=== PATIENT | female | born 1980 | race Caucasian/White ===

== ENCOUNTER 2016-04-14 18:31 | Emergency (ER) | payer OTHER ==
--- NOTE | 2016-04-14 19:18 | DIAGNOSTIC IMAGING REPORT ---
PROCEDURE: XR LUMBAR SPINE 2 OR 3 VIEWS INDICATION: TRAUMA/INJURY TECHNIQUE: Three views. COMPARISON: None. FINDINGS: Osseous structures and disc spaces are normal. No evidence of an acute process or fracture. IMPRESSION: 1. Negative lumbar spine.
--- NOTE | 2016-04-14 19:29 | ED CLINICAL REPORT ---
Clinical Report - Physicians/Mid Levels [facility] [address] [place] [address] 04/14/2016 18:33 Patient: DARREL RAZA Time Seen: 19:09 Apr 14 2016. Arrived- By private vehicle. Historian- patient. HISTORY OF PRESENT ILLNESS Chief Complaint: FALL. Location of injuries- lower back. The injury occurred just prior to arrival. Fell. Occurred at home. The patient complains of moderate pain. No blow to the head, neck pain or loss of consciousness. (ell down 5 stairs this morning, sliding on them, no injury to the head or neck, posterior back pain.pain worsens with sitting. Patient has been laying in bed all day. No other injuries to her wrist. History of back problems.). REVIEW OF SYSTEMS No hearing loss, chest pain, nausea or abdominal pain. All systems otherwise negative, except as recorded above. SOCIAL HISTORY Never smoker. No alcohol use or drug use. ADDITIONAL NOTES The nursing notes have been reviewed. PHYSICAL EXAM Vital Signs: 04/14/2016 18:40 BP: 105/60. HR: 81. RR: 15. O2 saturation: 98%. Temp: 98.8 F. Pain level now: 9/10. Appearance: Alert. Patient in mild distress. No backboard or C-collar. Eyes: Pupils equal, round and reactive to light. EOM intact. No ocular injury. ENT: No hemotympanum. Neck: Painless ROM. Non-tender. No vertebral tenderness. CVS: Heart sounds normal. Pulses normal. Respiratory: Breath sounds normal. Chest nontender. No chest wall injury. Abdomen: No visible injury. Soft. Back: Vertebral point tenderness. Moderate vertebral tenderness in the right upper and left upper lumbar area. ROM normal. Skin: Skin intact. Extremities: Pelvis stable. Right hip. No tenderness or swelling. Left hip. No tenderness or swelling. Neuro: Oriented X 3. LABS, X-RAYS, AND EKG LS-Spine X-rays: (IMPRESSION: 1. Negative lumbar spine. Electronically Final signed by:Felxi Weiner MD 04/14/2016 7:14:41 PM). PROGRESS AND PROCEDURES Course of Care: Mechanical fall on stairs, with lumbar tenderness. No rash on abrasion, no protrusion, good spinal alignment. X-ray without any signs of acute fracture, good distal range of motion, no distal neurovascular compromise. Patient stable. No red flags. Denies IV drug abuse, nor further paresthesias. Stable to follow up outpatient. 04/14/2016 19:34 BP: 116/84. HR: 73. RR: 16. O2 saturation: 100%. Pain level now: 8/10. Patient is stable. Patient/family counseled. Disposition: Discharged. Condition: good. CLINICAL IMPRESSION Contusion. INSTRUCTIONS Apply ice. Prescription Medications: Hydrocodone/APAP 5mg / 325mg: take 1 orally every 6 hours as needed for pain. Dispense ten (10). No refill. Motrin 800 mg tablets: take 1 tablet orally every 8 hours for 5 days, as needed for pain. Dispense ten (10). No refill. Substitution is permissible. Follow-up: Follow up with your doctor in three days. (Electronically signed by Lissa Bryan P.A.-C 04/14/2016 19:42)
--- NOTE | 2016-04-14 19:29 | ED ORDER SUMMARY ---
..... Patient: DARREL RAZA OrderSheet [facility] VisitID: [id number] [address] [place] [address] 35y, F Registration Date/Time: 04/14/2016 ORDER SHEET Weight: 94.8 kg (stated) Allergies: Penicillin GENERAL ORDERS: Lumbar Spine 2 or 3V Urgent (18:42 04/14/2016 Julianne Bowman) (Ack 18:46 KADIEuller) ([facility] MEDICATION ORDERS: Hydrocodone-APAP PO 10/650 mg (NOW, HIGH ALERT MEDICATION) (19:27 04/14/2016 Julianne Bowman) (Ack 19:28 JQuivey R.N.) (19:37 JQuivey R.N.) IV FLUIDS: ORDER SHEET NOTES: [Electronically signed by Lissa Bryan P.A.-C (19:42 04/14/2016)] [Electronically signed by Min Mondragon R.N. (23:54 04/14/2016)] [Electronically locked/signed by Min Mondragon R.N. (23:54 04/14/2016)]
--- NOTE | 2016-04-14 19:29 | ED NURSING NOTES ---
Clinical Report - Nurses [facility] [address] [place] [address] 04/14/2016 18:33 Patient: DARREL RAZA TRIAGE Triage time 1841 PM. Acuity: LEVEL 4. Chief Complaint: FALL while walking, onto a concrete surface and landed on their back; tripped. Alert. No acute distress. SEPSIS SCREEN: Sepsis Screen. Negative (no infection suspected/documented). CHASE COMA SCORE: Chase Coma Scale: 15- eyes open spontaneously (4); best verbal response- oriented x 4 (5); best motor response- obeys commands (6). --18:49 Martina Magana R.N. 18:40 04/14/16. BP: 105/60 (regular adult cuff) taken on the right arm, via an automated monitor, while lying. HR: 81. RR: 15. O2 saturation: 98%. Temp: 98.8 F (oral). Pain level now: 11/29. --18:49 Martina Magana R.N. Weight: 94.8 kg stated. Height/Length: 62 inches. BMI: 38.3. --18:42 Martina Magana R.N. Medications None. --18:46 Martina Magana R.N. Allergies Penicillin. --18:46 Martina Magana R.N. History Arrived by private vehicle, and walking from home. Historian: patient. Accompanied by family. ( Pt this a.m was at home and her 1 yr old niece fell down the stairs, she chased her and slipped and fell, states falling backwards, hitting her tail bone with rail and her right shoulder. Here to get further evaluation due to pain). This occurred today (this am). Occurred at home. She has had neck pain, back pain and trouble walking. No loss of consciousness. No alteration in mental status or dizziness. 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 PAST MEDICAL HX: Tetanus status: up-to-date. Immunizations: up-to-date. Last normal menstrual period- Mar. SOCIAL HX: Heavy tobacco smoker (cigarette)- more than 2 packs per day. No alcohol use or drug use. No infectious disease exposure. SELF HARM ASSESSMENT: A self harm assessment was performed. The patient answered "no" to the question "Do you have thoughts of harming or killing yourself?" and "Have you recently had thoughts about harming or killing others?". FALL RISK ASSESSMENT: Fall risk assessment completed. No fall risk identified. NUTRITIONAL RISK ASSESSMENT: The nutritional risk assessment revealed no deficiencies. FUNCTIONAL ASSESSMENT: Functional assessment: no impairments noted. LEARNING NEEDS ASSESSMENT: The learning needs assessment revealed no barriers. --18:49 Martina Magana R.N. PROBLEMS: Tendonitis [Chronic]. --18:47 Martina Magana R.N. Back Pain. --18:47 Martina Magana R.N. ADDITIONAL SURGERIES: Appendectomy. Tonsillectomy. --18:47 Martina Magana R.N. Interventions ID band on patient. --18:49 Martina Magana R.N. PHYSICAL ASSESSMENT GENERAL / NEURO / PSYCH: Alert. Oriented X 4. Appears in no acute distress. No weakness. No numbness. RESPIRATORY: Chest nontender. Breath sounds within normal limits. CVS: Capillary refill less than 2 seconds. GI / : Abdomen soft and nontender. EXTREMITIES: Neuro-vascular status intact to the extremity. Right shoulder: tenderness. No deformity. No limitation in ROM. SKIN: Skin intact. Skin is warm. BACK: Back: tenderness located in the mid-sacral area and mid- lumbar area. Range of motion limited. --18:50 Martina Magana R.N. NURSING PROGRESS NOTES The initial plan of care for this patient has been created This plan of care was discussed with the patient. Patient gowned. Reassurance given and given. Two patient identifiers checked. Call light placed in reach. Side rails up x 1. Brakes of bed on. Brakes of chair on. --18:51 Martina Magana R.N. Patient walked to radiology. --18:52 Martina Magana R.N. 19:07. Care transferred and report received. --19:07 Min Mondragon R.N. 19:23. Warming measures: blanket applied. The patient is calm and resting quietly. GENERAL / NEURO / PSYCH: Alert. Oriented X 4. RESPIRATORY: No respiratory distress. --19:24 Min Mondragon R.N. 19:34. The patient is calm and resting quietly. GENERAL / NEURO / PSYCH: Alert. Oriented X 4. RESPIRATORY: No respiratory distress. EXTREMITIES: Neuro-vascular status intact to the extremity. --19:37 Min Mondragon R.N. 19:32 04/14/2016 Hydrocodone-APAP (Hydrocodone-Acetaminophen) PO 5/325 mg Tablets 2 tab given. Allergies verified, confirmed 5 rights and sedative warning given to the patient. --19:37 Min Mondragon R.N. DISPOSITION / DISCHARGE Departure time: 19:36. Condition at departure: stable. No learning barriers present. Discharge instructions provided and reviewed with the patient. Reviewed medication(s) side effects, precautions, dosing and course information. Prescription(s) given to the patient. Patient verbalized understanding. Written instructions provided in [place]. The patient was discharged home and accompanied by family. She left the Emergency Department ambulatory and via private vehicle. Family member driving. FALL RISK ASSESSMENT: Fall risk assessment completed. No fall risk identified. --19:36 Min Mondragon R.N. 19:34 04/14/16. BP: 116/84. HR: 73. RR: 16. O2 saturation: 100% on room air. Pain level now: 10/29. --19:36 Min Mondragon R.N. Locked/Released at 04/14/2016 23:54 by Min Mondragon R.N.
--- NOTE | 2016-04-14 19:29 | ED CLINICAL REPORT ---
Clinical Report - Physicians/Mid Levels [facility] [address] [place] [address] 04/14/2016 18:33 Patient: DARREL RAZA Time Seen: 19:09 Apr 14 2016. Arrived- By private vehicle. Historian- patient. HISTORY OF PRESENT ILLNESS Chief Complaint: FALL. Location of injuries- lower back. The injury occurred just prior to arrival. Fell. Occurred at home. The patient complains of moderate pain. No blow to the head, neck pain or loss of consciousness. (ell down 5 stairs this morning, sliding on them, no injury to the head or neck, posterior back pain.pain worsens with sitting. Patient has been laying in bed all day. No other injuries to her wrist. History of back problems.). REVIEW OF SYSTEMS No hearing loss, chest pain, nausea or abdominal pain. All systems otherwise negative, except as recorded above. SOCIAL HISTORY Never smoker. No alcohol use or drug use. ADDITIONAL NOTES The nursing notes have been reviewed. PHYSICAL EXAM Vital Signs: 04/14/2016 18:40 BP: 105/60. HR: 81. RR: 15. O2 saturation: 98%. Temp: 98.8 F. Pain level now: 9/10. Appearance: Alert. Patient in mild distress. No backboard or C-collar. Eyes: Pupils equal, round and reactive to light. EOM intact. No ocular injury. ENT: No hemotympanum. Neck: Painless ROM. Non-tender. No vertebral tenderness. CVS: Heart sounds normal. Pulses normal. Respiratory: Breath sounds normal. Chest nontender. No chest wall injury. Abdomen: No visible injury. Soft. Back: Vertebral point tenderness. Moderate vertebral tenderness in the right upper and left upper lumbar area. ROM normal. Skin: Skin intact. Extremities: Pelvis stable. Right hip. No tenderness or swelling. Left hip. No tenderness or swelling. Neuro: Oriented X 3. LABS, X-RAYS, AND EKG LS-Spine X-rays: (IMPRESSION: 1. Negative lumbar spine. Electronically Final signed by:Felix Weiner MD 04/14/2016 7:14:41 PM). PROGRESS AND PROCEDURES Course of Care: Mechanical fall on stairs, with lumbar tenderness. No rash on abrasion, no protrusion, good spinal alignment. X-ray without any signs of acute fracture, good distal range of motion, no distal neurovascular compromise. Patient stable. No red flags. Denies IV drug abuse, nor further paresthesias. Stable to follow up outpatient. 04/14/2016 19:34 BP: 116/84. HR: 73. RR: 16. O2 saturation: 100%. Pain level now: 8/10. Patient is stable. Patient/family counseled. Disposition: Discharged. Condition: good. CLINICAL IMPRESSION Contusion. INSTRUCTIONS Apply ice. Prescription Medications: Hydrocodone/APAP 5mg / 325mg: take 1 orally every 6 hours as needed for pain. Dispense ten (10). No refill. Motrin 800 mg tablets: take 1 tablet orally every 8 hours for 5 days, as needed for pain. Dispense ten (10). No refill. Substitution is permissible. Follow-up: Follow up with your doctor in three days. (Electronically signed by Lissa Bryan P.A.-C 04/14/2016 19:42)
--- NOTE | 2016-04-14 19:29 | ED ORDER SUMMARY ---
..... Patient: DARREL RAZA OrderSheet [facility] VisitID: [id number] [address] [place] [address] 35y, F Registration Date/Time: 04/14/2016 ORDER SHEET Weight: 94.8 kg (stated) Allergies: Penicillin GENERAL ORDERS: Lumbar Spine 2 or 3V Urgent (18:42 04/14/2016 Julianne Bowman) (Ack 18:46 KADIEuller) (19:[facility] MEDICATION ORDERS: Hydrocodone-APAP PO 10/650 mg (NOW, HIGH ALERT MEDICATION) (19:27 04/14/2016 Julianne Bowman) (Ack 19:28 JQuivey R.N.) (19:37 JQuivey R.N.) IV FLUIDS: ORDER SHEET NOTES: [Electronically signed by Lissa Bryan P.A.-C (19:42 04/14/2016)] [Electronically signed by Min Mondragon R.N. (23:54 04/14/2016)] [Electronically locked/signed by Min Mondragon R.N. (23:54 04/14/2016)]
--- NOTE | 2016-04-14 23:54 | ED MAR SUMMARY ---
..... Medication Administration Record [facility] [address] [place] [address] Patient: DARREL RAZA Visit ID: [id number] 35y, F Weight: 94.8 kg Height/Length: 62 in BMI: 38.3 ALLERGIES: Penicillin Given 19:32 04/14/2016 Min Mondragon R.N. Medication Administered: HYDROCODONE-APAP [PO] (HYDROCODONE-ACETAMINOPHEN), Dose: 2 tab 5/325 mg Tablets PO. Medication Ordered: Hydrocodone-APAP PO 10/650 mg (NOW, HIGH ALERT MEDICATION).
--- NOTE | 2016-04-14 23:54 | ED MED RECONCILIATION SUMMARY ---
Patient: DARREL RAZA Medication Reconciliation Report [facility] VisitID: [id number] [address] [place] [address] 35y, F Registration Date/Time: 04/14/2016 Weight: 94.8 kg Height/Length: 62 in. BMI: 38.3 ALLERGIES: Penicillin The patient's Home Medications are listed below: NONE. The source(s) of the original Home Medication information: Not obtained. The following Medications were given to the patient in the Emergency Department: Hydrocodone-APAP [PO] PO 2 tab, administered: 04/14/2016 7:32:00 PM The following Medications were prescribed to the patient: Hydrocodone/APAP 5mg / 325mg: take 1 orally every 6 hours as needed for pain. Dispense ten (10). No refill. -- Lissa Bryan, P.A.-C Motrin 800 mg tablets: take 1 tablet orally every 8 hours for 5 days, as needed for pain. Dispense ten (10). No refill. Substitution is permissible. -- Lissa Bryan, P.A.-C
--- NOTE | 2016-04-14 23:54 | ED MAR SUMMARY ---
..... Medication Administration Record [facility] [address] [place] [address] Patient: DARREL RAZA Visit ID: [id number] 35y, F Weight: 94.8 kg Height/Length: 62 in BMI: 38.3 ALLERGIES: Penicillin Given 19:32 04/14/2016 Min Mondragon R.N. Medication Administered: HYDROCODONE-APAP [PO] (HYDROCODONE-ACETAMINOPHEN), Dose: 2 tab 5/325 mg Tablets PO. Medication Ordered: Hydrocodone-APAP PO 10/650 mg (NOW, HIGH ALERT MEDICATION).
--- NOTE | 2016-04-14 23:54 | ED DISCHARGE INSTRUCTIONS ---
Patient: DARREL RAZA General Instructions [facility] VisitID: [id number] [place] [address] 35y, F Registration Date/Time: 04/14/2016 Contusion. INSTRUCTIONS Apply ice. Prescription Medications: Hydrocodone/APAP 5mg / 325mg: take 1 orally every 6 hours as needed for pain. Dispense ten (10). No refill. Motrin 800 mg tablets: take 1 tablet orally every 8 hours for 5 days, as needed for pain. Dispense ten (10). No refill. Substitution is permissible. Follow-up: Follow up with your doctor in three days. ADDITIONAL INFORMATION Contusion, Back You have a CONTUSION of the back. This is a bruise with swelling and some bleeding under the skin. There are no broken bones. This injury takes a few days to a few weeks to heal. It is normal to feel muscle stiffness and aching in the area of injury the next day. Home Care: 1) Rest and relax your back muscles until you are feeling better. 2) Apply an ice pack (crushed or cubed ice in a plastic bag, wrapped in a towel) for 20 minutes every 2-4 hours during the first two days after a new injury. Local heat (hot shower, hot bath or heating pad) and massage will help reduce muscle spasm . Some patients feel best alternating treatments. Use the method that feels best to you for. 3) You may use acetaminophen (Tylenol) or ibuprofen (Motrin, Advil) to control pain, unless another pain medicine was prescribed. [ NOTE : If you have chronic liver or kidney disease or ever had a stomach ulcer or GI bleeding, talk with your doctor before using these medicines.] Follow Up with your doctor or this facility if your symptoms do not start to improve after three days. [NOTE: If X-rays were taken, they will be reviewed by a radiologist. You will be notified of any new findings that may affect your care.] Get Prompt Medical Attention if any of the following occur: -- Pain becomes worse or spreads to one or both legs -- Weakness or numbness in one or both legs -- Loss of bowel or bladder control -- Numbness in the groin or genital area -- Redness, warmth or drainage from the skin Contusion: Coccyx Or Sacrum You have a CONTUSION of the coccyx or sacrum. The sacrum is the triangular bone at the base of the spine that joins the pelvic bones. The coccyx (tailbone) is the last bone of the sacrum that hangs down in a point like a small tail. A contusion is a bruise with swelling and some bleeding under the skin. You have no broken bones. This injury takes a few days to a few weeks to heal. A crack (fracture) in the coccyx bone causes the same symptoms as a contusion of this bone. Often, x-rays are not taken of this area since the treatment is the same. A fracture of this bone will take about four weeks to heal. Home Care: Try to find a position of comfort. Try lying on your side with your knees bent up towards your chest and a pillow between your knees. Apply an ice pack (crushed or cubed ice in a plastic bag, wrapped in a towel) for 20 minutes every 2-4 hours during the first two days after a new injury. You may use acetaminophen (Tylenol) or ibuprofen (Motrin, Advil) to control pain, unless another pain medicine was prescribed. [ NOTE: If you have chronic liver or kidney disease or ever had a stomach ulcer or GI bleeding, talk with your doctor before using these medicines.] A bruised tailbone causes pain when sitting. You may try using a "donut pillow" which is a foam pillow that has a hole in the center to prevent pressure on the tailbone. You can obtain this at a pharmacy or orthopedic supply store. Follow Up with your doctor or this facility if your symptoms do not start to improve after one week. [NOTE: If X-rays were taken, they will be reviewed by a radiologist. You will be notified of any new findings that may affect your care.] Get Prompt Medical Attention if any of the following occur: Pain becomes worse or spreads to one or both legs Weakness or numbness in one or both legs Loss of bowel or bladder control Numbness in the groin area Redness, warmth or drainage from the skin Hydrocodone Bitartrate, Acetaminophen Oral tablet What is this medicine? ACETAMINOPHEN; HYDROCODONE (a set a ZENOBIA brian fen; cherie droe KOE done) is a pain reliever. It is used to treat mild to moderate pain. How should I use this medicine? Take this medicine by mouth. Swallow it with a full glass of water. Follow the directions on the prescription label. If the medicine upsets your stomach, take the medicine with food or milk. Do not take more than you are told to take. Talk to your erp consultant regarding the use of this medicine in children. This medicine is not approved for use in children. What side effects may I notice from receiving this medicine? Side effects that you should report to your doctor or health home care manager as soon as possible: allergic reactions like skin rash, itching or hives, swelling of the face, lips, or tongue breathing problems confusion feeling faint or lightheaded, falls stomach pain yellowing of the eyes or skin Side effects that usually do not require medical attention (report to your doctor or health home care manager if they continue or are bothersome): nausea, vomiting stomach upset What may interact with this medicine? alcohol antihistamines isoniazid medicines for depression, anxiety, or psychotic disturbances medicines for sleep muscle relaxants naltrexone narcotic medicines (opiates) for pain phenobarbital ritonavir tramadol What if I miss a dose? If you miss a dose, take it as soon as you can. If it is almost time for your next dose, take only that dose. Do not take double or extra doses. Where should I keep my medicine? Keep out of the reach of children. This medicine can be abused. Keep your medicine in a safe place to protect it from theft. Do not share this medicine with anyone. Selling or giving away this medicine is dangerous and against the law. Store at room temperature between 15 and 30 degrees C (59 and 86 degrees F). Protect from light. Keep container tightly closed. Throw away any unused medicine after the expiration date. Discard unused medicine and used packaging carefully. Pets and children can be harmed if they find used or lost packages. What should I tell my health care provider before I take this medicine? They need to know if you have any of these conditions: brain tumor Crohn's disease, inflammatory bowel disease, or ulcerative colitis drink more than 3 alcohol-containing drinks per day drug abuse or addiction head injury heart or circulation problems kidney disease or problems going to the bathroom liver disease lung disease, asthma, or breathing problems an unusual or allergic reaction to acetaminophen, hydrocodone, other opioid analgesics, other medicines, foods, dyes, or preservatives or trying to get breast-feeding What should I watch for while using this medicine? Tell your doctor or health home care manager if your pain does not go away, if it gets worse, or if you have new or a different type of pain. You may develop tolerance to the medicine. Tolerance means that you will need a higher dose of the medicine for pain relief. Tolerance is normal and is expected if you take the medicine for a long time. Do not suddenly stop taking your medicine because you may develop a severe reaction. Your body becomes used to the medicine. This does NOT mean you are addicted. Addiction is a behavior related to getting and using a drug for a non-medical reason. If you have pain, you have a medical reason to take pain medicine. Your doctor will tell you how much medicine to take. If your doctor wants you to stop the medicine, the dose will be slowly lowered over time to avoid any side effects. You may get drowsy or dizzy when you first start taking the medicine or change doses. Do not drive, use machinery, or do anything that may be dangerous until you know how the medicine affects you. Stand or sit up slowly. There are different types of narcotic medicines (opiates) for pain. If you take more than one type at the same time, you may have more side effects. Give your health care provider a list of all medicines you use. Your doctor will tell you how much medicine to take. Do not take more medicine than directed. Call emergency for help if you have problems breathing. The medicine will cause constipation. Try to have a bowel movement at least every 2 to 3 days. If you do not have a bowel movement for 3 days, call your doctor or health home care manager. Too much acetaminophen can be very dangerous. Do not take Tylenol (acetaminophen) or medicines that contain acetaminophen with this medicine. Many non-prescription medicines contain acetaminophen. Always read the labels carefully. You have been given the following additional information: Contusion, Back Contusion, Coccyx/Sacrum Hydrocodone Bitartrate, Acetaminophen Oral tablet (Electronically signed by Lissa Bryan P.A.-C 04/14/2016 19:42)
--- NOTE | 2016-04-14 23:54 | ED MED RECONCILIATION SUMMARY ---
Patient: DARREL RAZA Medication Reconciliation Report [facility] VisitID: [id number] [address] [place] [address] 35y, F Registration Date/Time: 04/14/2016 Weight: 94.8 kg Height/Length: 62 in. BMI: 38.3 ALLERGIES: Penicillin The patient's Home Medications are listed below: NONE. The source(s) of the original Home Medication information: Not obtained. The following Medications were given to the patient in the Emergency Department: Hydrocodone-APAP [PO] PO 2 tab, administered: 04/14/2016 7:32:00 PM The following Medications were prescribed to the patient: Hydrocodone/APAP 5mg / 325mg: take 1 orally every 6 hours as needed for pain. Dispense ten (10). No refill. -- Lissa Bryan, P.A.-C Motrin 800 mg tablets: take 1 tablet orally every 8 hours for 5 days, as needed for pain. Dispense ten (10). No refill. Substitution is permissible. -- Lissa Bryan, P.A.-C
== END 2016-04-14 19:36 | disposition home or self-care (01) ==
LOC: ED SRH 18:31
DX: S30.0XXA Contusion of lower back and pelvis, initial encounter (principal); F17.210 Nicotine dependence, cigarettes, uncomplicated; W10.9XXA Fall (on) (from) unspecified stairs and steps, initial encounter; Y93.9 Activity, unspecified; Y92.9 Unspecified place or not applicable; Y99.9 Unspecified external cause status

== ENCOUNTER 2016-10-07 14:43 | Emergency (ER) | payer OTHER ==
--- NOTE | 2016-10-07 18:03 | DIAGNOSTIC IMAGING REPORT ---
PROCEDURE: CT ABDOMEN/PELVIS W/O CONTRAST INDICATION: Right abdominal pain. Vaginal bleeding. Possible dermoid. TECHNIQUE: Noncontrast axial images with sagittal and coronal reformations. COMPARISON: Compared CT pelvis on 10/07/2016. FINDINGS: ABDOMEN: There are small dystrophic calcifications in the appendix, but no evidence of inflammatory process. Bowel pattern is otherwise normal. Gallbladder, liver, spleen, pancreas, kidneys, and aorta are normal. PELVIS: There is a 4.6 x 3.6 cm ovoid lipomatous lesion in the right adnexal region with central of soft tissue density and dystrophic calcification Uterus and left adnexal structures are normal. No evidence of free fluid. IMPRESSION: 1. There are dystrophic calcifications in the appendix, but no evidence of inflammation to suggest appendicitis. 2. There is a 4.6 x 3.6 cm ovoid lipomatous mass with dystrophic calcification in the right adnexal region. 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 3. Otherwise negative CT abdomen and pelvis. 4. Findings discussed with RAPHAEL Diez. All CT scans at this facility use dose modulation, iterative reconstruction, and/or weight-based dosing when appropriate to reduce radiation dose to as low as reasonably achievable.
--- NOTE | 2016-10-07 18:07 | DIAGNOSTIC IMAGING REPORT ---
PROCEDURE: US COMPLETE PELVIC W/TRANSVAG INDICATION: Right pain. Bleeding. TECHNIQUE: Transabdominal and endovaginal bocanegra scale and color Doppler sonographic images of the female pelvis were obtained. COMPARISON: None. FINDINGS: TRANSABDOMINAL SCANS: Uterus is of normal size (9.5 x 4.4 x 5.5 cm). TRANSVAGINAL SCANS: Endometrial thickness is normal (7 mm). There is a 7.1 x 4.6 x 4.2 cm right adnexal hyperechoic shadowing mass. Normal vascularity. Left ovary is normal (3.0 cm). No evidence of free fluid. IMPRESSION: 1. There is a 7.1 x 4.6 x 4.2 cm echogenic right adnexal mass most compatible with right ovarian dermoid. CT is recommended to further evaluate and confirm. 2. Otherwise negative pelvic ultrasound. 3. Findings discussed with RAPHAEL Diez.
--- NOTE | 2016-10-07 18:23 | ED ORDER SUMMARY ---
..... Patient: DARREL RAZA OrderSheet [facility] VisitID: [id number] [address] [place] [address] 35y, F Registration Date/Time: 10/07/2016 ORDER SHEET Weight: 93.4 kg (stated) Allergies: Penicillins GENERAL ORDERS: CBC w Diff Urgent (15:52 10/07/2016 KKnebel R.N. per protocol) (Ack 15:53 AMcQuoid ER Tech1) (16:55 KKnebel R.N.) BMP Urgent (15:52 10/07/2016 KKnebel R.N. per protocol) (Ack 15:53 AMcQuoid ER Tech1) (16:55 KKnebel R.N.) PT with INR Urgent (15:52 10/07/2016 KKnebel R.N. per protocol) (Ack 15:53 AMcQuoid ER Tech1) (16:55 KKnebel R.N.) Serum Qualitative Urgent (16:31 10/07/2016 HBivens A.R.N.P.) (Ack 16:33 LNations ER Tech1) (16:56 KKnebel R.N.) Pelvic Exam Setup (16:31 10/07/2016 HBivens A.R.N.P.) (Ack 16:33 LNations ER Tech1) (16:55 KKnebel R.N.) US Pelvic Complete w Transvag Urgent (16:42 10/07/2016 HBivens A.R.N.P.) (Ack 16:45 LNations ER Tech1) (17:00 KKnebel R.N.) CT Abd/Pel wo Cont Urgent (17:28 10/07/2016 HBivens A.R.N.P.) (Ack 17:37 LNations ER Tech1) (18:26 LNations ER Tech1) MEDICATION ORDERS: IV FLUIDS: IV Saline Lock (15:52 10/07/2016 KKnebel R.N. per protocol) (16:55 KKnebel R.N.) Toradol IV 30 mg (NOW) (16:43 10/07/2016 HBivens A.R.N.P.) (17:00 KKnebel R.N.) ORDER SHEET NOTES: [Electronically signed by Donna Yeung (20:07 10/07/2016)] [Electronically signed by Lana Ashley R.N. (08:47 10/08/2016)] [Electronically locked/signed by Lana Ashley R.N. (08:47 10/08/2016)]
--- NOTE | 2016-10-07 18:23 | ED CLINICAL REPORT ---
Clinical Report - Physicians/Mid Levels [facility] [address] [place] [address] 10/07/2016 14:44 Patient: DARREL RAZA Time Seen: 16:24; initial patient contact, initial documentation, patient care assumed. Arrived- By private vehicle. Historian- patient. HISTORY OF PRESENT ILLNESS Chief Complaint: VAGINAL BLEEDING. This started about 2 days ago and still present. The symptoms are described as moderate. Modifying factors. Not worsened by anything. Not relieved by anything. The patient has had crampy, constant abdominal pain (took midal with little relief). She has had pelvic pain. She has had abnormal bleeding described as heavier than normal period ( states she is changing a pad every 20-30 minutes and has a tampon also). No vaginal pain, low back pain, flank pain, missed period(s) or irregular periods. No vaginal discharge, pain with urination, urinary frequency, urgency of urination or hematuria. Not sexually active. (states it is time for her period, but she has never had bleeding like this prior). Denies current . Similar symptoms previously: None. Recent medical care: Not recently seen/assessed. REVIEW OF SYSTEMS No nausea, vomiting, difficulty breathing or chest pain. She has had diarrhea (last night). This has occurred only once. All systems otherwise negative, except as recorded above. PAST HISTORY Negative. SOCIAL HISTORY Heavy tobacco smoker. Occasional alcohol use. History of drug use: marijuana. No recent travel. Is a local resident. FAMILY HISTORY Negative. ADDITIONAL NOTES The nursing notes have been reviewed with agreement regarding the chief complaint, HPI, ROS, PMH and patient medications and allergies. PHYSICAL EXAM Vital Signs: 10/07/2016 14:59 BP: 118/73. HR: 92. RR: 18. O2 saturation: 99%. Temp: 98.9 F. Pain level now: 4/10. Have been reviewed as normal and appear to be correct. Appearance: Alert. Oriented X3. No acute distress. HEENT: Normal external inspection. ENT: Pharynx normal. Neck: Neck supple. CVS: Heart sounds normal. Respiratory: No respiratory distress. Breath sounds normal. Chest nontender. Abdomen: Soft and nontender. Bowel sounds normal. No organomegaly. No mass. Back: Normal external inspection. : External inspection abnormal. Speculum exam abnormal. Moderate vaginal bleeding, consisting of bright red blood, via the cervical os. No vaginal discharge. Cervical os closed. No cervicitis. No herpes-like lesions. Bimanual exam normal. No tissue present in the cervical os. Skin: Skin warm and dry. Normal skin color. No rash. Normal skin turgor. Extremities: Extremities nontender. No lower extremity edema. Neuro: Oriented X 3. Mood/affect normal. No motor deficit. No sensory deficit. LABS, X-RAYS, AND EKG Abdominal CT: . dermoid cyst R ovary, 4cm IMPRESSION: 1. There are dystrophic calcifications in the appendix, but no evidence of inflammation to suggest appendicitis. 2. There is a 4.6 x 3.6 cm ovoid lipomatous mass with dystrophic calcification in the right adnexal region. 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 3. Otherwise negative CT abdomen and pelvis. 4. Findings discussed with RAPHAEL Diez. All CT scans at this facility use dose modulation, iterative reconstruction, and/or weight-based dosing when appropriate to reduce radiation dose to as low as reasonably achievable. Electronically Final signed by:Felix Weiner MD 10/07/2016 6:03:17 PM. The study was interpreted by the radiologist and discussed with the radiologist. Interpretation time: 17:58. Pelvic Sonogram: . recommending ct of abd/pelvis, to see dermoid. The study was interpreted by the radiologist and discussed with the radiologist. Interpretation time: 17:27. Laboratory Tests: Serum Qualitative: (JODIE: 10/07/2016 16:00) ( [facility] [place] 16:57) Final results Test Result Flag Units (Reference) , SERUM NEGATIVE CBC w Diff: (JODIE: 10/07/2016 16:00) ( [facility] 10/07/2016 16:34) Final results Test Result Flag Units (Reference) WHITE BLOOD COUNT 10.6 K/uL (4.5-11.5) RED BLOOD COUNT 4.82 M/uL (4.00-5.20) HEMOGLOBIN 13.4 gm/dL (12.0-16.0) HEMATOCRIT 39.7 % (36.0-46.0) MEAN CELL VOLUME 82 fL (80-100) MEAN CORPUSCULAR HGB 28 pg (26-34) MEAN CORPUSCULAR HGB CONC 34 g/dL (31-37) RED CELL DISTRIBUTION WIDTH 13.9 % (11.6-14.8) PLATELET COUNT 369 K/uL (150-400) NEUTROPHIL % 66.0 % (50-75) LYMPH % 26.6 % (25-40) MONO % 4.8 % (3-14) EOSINOPHIL % 2.2 % (0-4) BASOPHIL % 0.4 % (0-2) PT with INR: (JODIE: 10/07/2016 16:00) ( [facility] [place]07[place] 16:22) Final results Test Result Flag Units (Reference) INR 0.9 (0.8-1.2) Low Intensity Therapy: INR 1.5-2.0 PT range 18.5-23.1Mod.Intensity Therapy: INR 2.0-3.0 PT range 23.1-31.5High Intensity Therapy: INR 2.5-3.5 PT range 27.4-35.5High Intensity Therapy 2: INR 3.0-4.0 PT range 31.5-39.3 BMP: (JODIE: 10/07/2016 16:00) ( [facility] [place]/07/[place] 16:26) Final results Test Result Flag Units (Reference) GLUCOSE 129 H mg/dL (70-110) BUN 8 mg/dL (7-18) CREATININE 0.7 mg/dL (0.6-1.3) Estimated GFR >60 mL/min Estimated GFR- >60 mL/min Note: Persistent reduction over 3 months in eGFR<60 mL/min/1.73 m2 defines CKD. Patients with eGFR values>=60 mL/min/1.73 m2 may also have CKD if evidence ofpersistent proteinuria. Additional information may be foundat www.kidney.org. SODIUM 141 mmol/L (136-145) POTASSIUM 3.6 mmol/L (3.5-5.1) CHLORIDE 106 mmol/L (98-107) CARBON DIOXIDE 25 mmol/L (21-32) CALCIUM 8.2 L mg/dL (8.5-10.1) . PROGRESS AND PROCEDURES Course of Care: 1720. US telling me she didn't really see anything abnormal, going to have radiologist look at it for verification, verbal report from [employer] [place] 17:29 10/07/16. pt updated with current results and ct ordered. 10/07/2016 17:59 BP: 112/72. HR: 63. RR: 14. O2 saturation: 99%. Pain level now: 4/10. Vital Signs: have been reviewed as normal and appear to be correct. Patient counseled in person regarding the patient's stable condition, test results and diagnosis. 18:01. Differential Diagnosis: I considered vaginitis, vaginal polyps, vaginal lesion, vaginal cancer, vulvar infection, cervicitis, ovarian cysts, polycystic disease of the ovaries, pelvic inflammatory disease, endometriosis, uterine fibroids, uterine polyps, uterine hyperplasia, uterine cancer, intrauterine , incomplete , threatened , retained products of , endometritis, endometrial carcinoma, fibroids, hematologic disease and dysfunctional uterine bleeding as a possible cause of vaginal bleeding in this patient. This is a partial list of diagnoses considered. Above considerations are based on history, physical exam, reassessment and laboratory data. Differential diagnosis was discussed with patient. Disposition: Discharged home in good and improved condition (18:22). Condition: good and stable. CLINICAL IMPRESSION Primary dysmenorrhea INSTRUCTIONS Warnings: GENERAL WARNINGS: Return or contact your physician immediately if your condition worsens or changes unexpectedly, if not improving as expected, or if other problems arise. Specifically return if problem worsens. Prescription Medications: Ultram 50 mg tablets: take 1-2 orally every 6 hours as needed for pain. Dispense twenty (20). No refills. Substitution is permissible. Understanding of the discharge instructions verbalized by patient. Follow-up with: Brad Kaur MD, Obstetrics/Gynecology, , [facility], [address] [place] [address] Follow up in about two days as needed. Call for an appointment. Summary of care provided to patient. (Electronically signed by Donna Yeung A.R.N.P. 10/07/2016 20:07)
--- NOTE | 2016-10-07 18:23 | ED NURSING NOTES ---
Clinical Report - Nurses [facility] [place] [address] 10/07/2016 14:44 Patient: DARREL RAZA TRIAGE Triage time 14:59. Acuity: LEVEL 3. Chief Complaint: VAGINAL BLEED and ABDOMINAL PAIN. Alert. No acute distress. CHASE COMA SCORE: Chase Coma Scale: 15- eyes open spontaneously (4); best verbal response- oriented x 4 (5); best motor response- obeys commands (6). --15:05 Lana Ashley R.N. 14:59 10/07/16. BP: 118/73. HR: 92. RR: 18. O2 saturation: 99% on room air. Temp: 98.9 F (oral). Pain level now: 06/29. --15:05 Lana Ashley R.N. Weight: 93.4 kg stated. Height/Length: 62 inches Per Patient. BMI: 37.7. --15:04 Lana Ashley R.N. Medications None. --15:00 Lana Ashley R.N. Medication/allergy information source: the patient. --15:05 Lana Ashley R.N. Allergies Penicillins. --15:00 Lana Ashley R.N. History Arrived by private vehicle. Historian: patient. Unaccompanied. Primary physician (none). Onset. (about 2 days). ( states she is changing a pad every 20-30 minutes and has a tampon also). PAST MEDICAL HX: Last normal menstrual period- August 2016. SOCIAL HX: Heavy tobacco smoker- less than 1 pack per day. Occasional alcohol use. History of drug use: marijuana. FALL RISK ASSESSMENT: Fall risk assessment completed. No fall risk identified. FUNCTIONAL ASSESSMENT: Functional assessment: no impairments noted. LEARNING NEEDS ASSESSMENT: The learning needs assessment revealed no barriers. --15:05 Lana Ashley R.N. Assessment GENERAL / NEURO / PSYCH: Alert. Oriented X 4. Appears in no acute distress. Patient appears calm and cooperative. RESPIRATORY: Respirations not labored. SKIN: Skin is warm and dry. --15:05 Lana Ashley R.N. Interventions ID and allergy band on patient. To waiting room. --15:05 Lana Ashley R.N. PHYSICAL ASSESSMENT Ambulatory to room. GENERAL / NEURO / PSYCH: Alert. Oriented X 4. Appears in pain. RESPIRATORY: Respirations not labored. CVS: Capillary refill less than 2 seconds. GI / : Abdomen soft. Abdominal tenderness in the suprapubic area. Moderate vaginal bleeding present, consisting of dark blood with clots .2 pads per hour. SKIN: Skin is warm and dry. --15:45 Briseida Araujo R.N. NURSING PROGRESS NOTES Patient gowned. Head of bed elevated. Patient identifiers checked. Call light placed in reach. Side rails up x 1. Bed placed in lowest position. Brakes of bed on. --15:45 Briseida Araujo R.N. ( assisted with pelvic exam.). --16:44 Mireya Lipscomb [facility] 16:00 10/07/2016 Site #1 started via IV in the right antecubital space with an 20g angiocath, with aseptic technique and good blood return; one attempt. Blood drawn: rainbow set. Labeled in the presence of the patient and sent to the lab. Saline lock flushed with 10 mL saline. --16:55 Briseida Araujo R.N. 17:00 10/07/2016 Toradol IVP 30 mg given over 2 minute(s) via site #1. Allergies verified and confirmed 5 rights. IV patency established. IV site checked: no pain, redness, or swelling. IV flushed thoroughly pre- and post-medication administration. IVP given by RN. --17:00 Briseida Araujo R.N. Reassessment after medication administered. She is calm and resting quietly. Overall patient status is the same- she states feels better. GI / : The patient reports abdominal pain is still present but improving. --18:01 Briseida Araujo R.N. 17:59 10/07/16. BP: 112/72. HR: 63. RR: 14. O2 saturation: 99%. Pain level now: 4/10. --18:01 Briseida Araujo R.N. DISPOSITION / DISCHARGE 18:53 10/07/2016 Site #1 removed upon discharge. Bandaid applied. --19:03 Viviana Brock R.N. No learning barriers present. Discharge instructions provided and reviewed with the patient. Reviewed medication(s) side effects, precautions, dosing and course information. Prescription(s) given to the patient. Patient verbalized understanding. Written instructions provided in Czech. The patient was discharged by the nurse practitioner. She was discharged home. She left the Emergency Department ambulatory and via private vehicle. Patient driving. --19:04 Viviana Brock R.N. 19:03 10/07/16. BP: 109/68. HR: 81. RR: 17. O2 saturation: 100%. Temp: deferred. Pain level now: 06/29. --19:04 Viviana Brock R.N. Locked/Released at 10/08/2016 8:47 by Lana Ashley R.N.
--- NOTE | 2016-10-07 18:23 | ED CLINICAL REPORT ---
Clinical Report - Physicians/Mid Levels [facility] [address] [address] 10/07/2016 14:44 Patient: DARREL RAZA Time Seen: 16:24; initial patient contact, initial documentation, patient care assumed. Arrived- By private vehicle. Historian- patient. HISTORY OF PRESENT ILLNESS Chief Complaint: VAGINAL BLEEDING. This started about 2 days ago and still present. The symptoms are described as moderate. Modifying factors. Not worsened by anything. Not relieved by anything. The patient has had crampy, constant abdominal pain (took midal with little relief). She has had pelvic pain. She has had abnormal bleeding described as heavier than normal period ( states she is changing a pad every 20-30 minutes and has a tampon also). No vaginal pain, low back pain, flank pain, missed period(s) or irregular periods. No vaginal discharge, pain with urination, urinary frequency, urgency of urination or hematuria. Not sexually active. (states it is time for her period, but she has never had bleeding like this prior). Denies current . Similar symptoms previously: None. Recent medical care: Not recently seen/assessed. REVIEW OF SYSTEMS No nausea, vomiting, difficulty breathing or chest pain. She has had diarrhea (last night). This has occurred only once. All systems otherwise negative, except as recorded above. PAST HISTORY Negative. SOCIAL HISTORY Heavy tobacco smoker. Occasional alcohol use. History of drug use: marijuana. No recent travel. Is a local resident. FAMILY HISTORY Negative. ADDITIONAL NOTES The nursing notes have been reviewed with agreement regarding the chief complaint, HPI, ROS, PMH and patient medications and allergies. PHYSICAL EXAM Vital Signs: 10/07/2016 14:59 BP: 118/73. HR: 92. RR: 18. O2 saturation: 99%. Temp: 98.9 F. Pain level now: 4/10. Have been reviewed as normal and appear to be correct. Appearance: Alert. Oriented X3. No acute distress. HEENT: Normal external inspection. ENT: Pharynx normal. Neck: Neck supple. CVS: Heart sounds normal. Respiratory: No respiratory distress. Breath sounds normal. Chest nontender. Abdomen: Soft and nontender. Bowel sounds normal. No organomegaly. No mass. Back: Normal external inspection. : External inspection abnormal. Speculum exam abnormal. Moderate vaginal bleeding, consisting of bright red blood, via the cervical os. No vaginal discharge. Cervical os closed. No cervicitis. No herpes-like lesions. Bimanual exam normal. No tissue present in the cervical os. Skin: Skin warm and dry. Normal skin color. No rash. Normal skin turgor. Extremities: Extremities nontender. No lower extremity edema. Neuro: Oriented X 3. Mood/affect normal. No motor deficit. No sensory deficit. LABS, X-RAYS, AND EKG Abdominal CT: . dermoid cyst R ovary, 4cm IMPRESSION: 1. There are dystrophic calcifications in the appendix, but no evidence of inflammation to suggest appendicitis. 2. There is a 4.6 x 3.6 cm ovoid lipomatous mass with dystrophic calcification in the right adnexal region. 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 3. Otherwise negative CT abdomen and pelvis. 4. Findings discussed with RAPHAEL Diez. All CT scans at this facility use dose modulation, iterative reconstruction, and/or weight-based dosing when appropriate to reduce radiation dose to as low as reasonably achievable. Electronically Final signed by:Felix Weiner MD 10/07/2016 6:03:17 PM. The study was interpreted by the radiologist and discussed with the radiologist. Interpretation time: 17:58. Pelvic Sonogram: . recommending ct of abd/pelvis, to see dermoid. The study was interpreted by the radiologist and discussed with the radiologist. Interpretation time: 17:27. Laboratory Tests: Serum Qualitative: (JODIE: 10/07/2016 16:00) ( [facility] 10/07/2016 16:57) Final results Test Result Flag Units (Reference) , SERUM NEGATIVE CBC w Diff: (JODIE: 10/07/2016 16:00) ( MsgRcvd 10/07/2016 16:34) Final results Test Result Flag Units (Reference) WHITE BLOOD COUNT 10.6 K/uL (4.5-11.5) RED BLOOD COUNT 4.82 M/uL (4.00-5.20) HEMOGLOBIN 13.4 gm/dL (12.0-16.0) HEMATOCRIT 39.7 % (36.0-46.0) MEAN CELL VOLUME 82 fL (80-100) MEAN CORPUSCULAR HGB 28 pg (26-34) MEAN CORPUSCULAR HGB CONC 34 g/dL (31-37) RED CELL DISTRIBUTION WIDTH 13.9 % (11.6-14.8) PLATELET COUNT 369 K/uL (150-400) NEUTROPHIL % 66.0 % (50-75) LYMPH % 26.6 % (25-40) MONO % 4.8 % (3-14) EOSINOPHIL % 2.2 % (0-4) BASOPHIL % 0.4 % (0-2) PT with INR: (JODIE: 10/07/2016 16:00) ( [facility] 10/07/2016 16:22) Final results Test Result Flag Units (Reference) INR 0.9 (0.8-1.2) Low Intensity Therapy: INR 1.5-2.0 PT range 18.5-23.1Mod.Intensity Therapy: INR 2.0-3.0 PT range 23.1-31.5High Intensity Therapy: INR 2.5-3.5 PT range 27.4-35.5High Intensity Therapy 2: INR 3.0-4.0 PT range 31.5-39.3 BMP: (JODIE: 10/07/2016 16:00) ( [facility] 10/07/2016 16:26) Final results Test Result Flag Units (Reference) GLUCOSE 129 H mg/dL (70-110) BUN 8 mg/dL (7-18) CREATININE 0.7 mg/dL (0.6-1.3) Estimated GFR >60 mL/min Estimated GFR- >60 mL/min Note: Persistent reduction over 3 months in eGFR<60 mL/min/1.73 m2 defines CKD. Patients with eGFR values>=60 mL/min/1.73 m2 may also have CKD if evidence ofpersistent proteinuria. Additional information may be foundat www.kidney.org. SODIUM 141 mmol/L (136-145) POTASSIUM 3.6 mmol/L (3.5-5.1) CHLORIDE 106 mmol/L (98-107) CARBON DIOXIDE 25 mmol/L (21-32) CALCIUM 8.2 L mg/dL (8.5-10.1) . PROGRESS AND PROCEDURES Course of Care: 1720. US telling me she didn't really see anything abnormal, going to have radiologist look at it for verification, verbal report from [employer] 17:29 10/07/16. pt updated with current results and ct ordered. 10/07/2016 17:59 BP: 112/72. HR: 63. RR: 14. O2 saturation: 99%. Pain level now: 4/10. Vital Signs: have been reviewed as normal and appear to be correct. Patient counseled in person regarding the patient's stable condition, test results and diagnosis. 18:01. Differential Diagnosis: I considered vaginitis, vaginal polyps, vaginal lesion, vaginal cancer, vulvar infection, cervicitis, ovarian cysts, polycystic disease of the ovaries, pelvic inflammatory disease, endometriosis, uterine fibroids, uterine polyps, uterine hyperplasia, uterine cancer, intrauterine , incomplete , threatened , retained products of , endometritis, endometrial carcinoma, fibroids, hematologic disease and dysfunctional uterine bleeding as a possible cause of vaginal bleeding in this patient. This is a partial list of diagnoses considered. Above considerations are based on history, physical exam, reassessment and laboratory data. Differential diagnosis was discussed with patient. Disposition: Discharged home in good and improved condition (18:22). Condition: good and stable. CLINICAL IMPRESSION Primary dysmenorrhea INSTRUCTIONS Warnings: GENERAL WARNINGS: Return or contact your physician immediately if your condition worsens or changes unexpectedly, if not improving as expected, or if other problems arise. Specifically return if problem worsens. Prescription Medications: Ultram 50 mg tablets: take 1-2 orally every 6 hours as needed for pain. Dispense twenty (20). No refills. Substitution is permissible. Understanding of the discharge instructions verbalized by patient. Follow-up with: Brad Kaur MD, Obstetrics/Gynecology, , [facility], [address] [place] [address] Follow up in about two days as needed. Call for an appointment. Summary of care provided to patient. (Electronically signed by Donna Yeung A.R.N.P. 10/07/2016 20:07)
--- NOTE | 2016-10-07 18:23 | ED ORDER SUMMARY ---
..... Patient: DARREL RAZA OrderSheet [facility] VisitID: [id number] [address] [place] [address] 35y, F Registration Date/Time: 10/07/2016 ORDER SHEET Weight: 93.4 kg (stated) Allergies: Penicillins GENERAL ORDERS: CBC w Diff Urgent (15:52 10/07/2016 KKnebel R.N. per protocol) (Ack 15:53 AMcQuoid ER Tech1) (16:55 KKnebel R.N.) BMP Urgent (15:52 10/07/2016 KKnebel R.N. per protocol) (Ack 15:53 AMcQuoid ER Tech1) (16:55 KKnebel R.N.) PT with INR Urgent (15:52 10/07/2016 KKnebel R.N. per protocol) (Ack 15:53 AMcQuoid ER Tech1) (16:55 KKnebel R.N.) Serum Qualitative Urgent (16:31 10/07/2016 HBivens A.R.N.P.) (Ack 16:33 LNations ER Tech1) (16:56 KKnebel R.N.) Pelvic Exam Setup (16:31 10/07/2016 HBivens A.R.N.P.) (Ack 16:33 LNations ER Tech1) (16:55 KKnebel R.N.) US Pelvic Complete w Transvag Urgent (16:42 10/07/2016 HBivens A.R.N.P.) (Ack 16:45 LNations ER Tech1) (17:00 KKnebel R.N.) CT Abd/Pel wo Cont Urgent (17:28 10/07/2016 HBivens A.R.N.P.) (Ack 17:37 LNations ER Tech1) (18:26 LNations ER Tech1) MEDICATION ORDERS: IV FLUIDS: IV Saline Lock (15:52 10/07/2016 KKnebel R.N. per protocol) (16:55 KKnebel R.N.) Toradol IV 30 mg (NOW) (16:43 10/07/2016 HBivens A.R.N.P.) (17:00 KKnebel R.N.) ORDER SHEET NOTES: [Electronically signed by Donna Yeung (20:07 10/07/2016)] [Electronically signed by Lana Ashley R.N. (08:47 10/08/2016)] [Electronically locked/signed by Lana Ashley R.N. (08:47 10/08/2016)]
--- NOTE | 2016-10-08 08:47 | ED MED RECONCILIATION SUMMARY ---
Patient: DARREL RAZA Medication Reconciliation Report [facility] VisitID: [id number] [address] [place] [address] 35y, F Registration Date/Time: 10/07/2016 Weight: 93.4 kg Height/Length: 62 in. BMI: 37.7 ALLERGIES: Penicillins The patient's Home Medications are listed below: NONE. The source(s) of the original Home Medication information: patient The following Medications were given to the patient in the Emergency Department: Toradol [IVP] IVP 30 mg, administered: 10/07/2016 5:00:00 PM The following Medications were prescribed to the patient: Ultram 50 mg tablets: take 1-2 orally every 6 hours as needed for pain. Dispense twenty (20). No refills. Substitution is permissible. -- Donna Yeung A.R.N.P.
--- NOTE | 2016-10-08 08:47 | ED DISCHARGE INSTRUCTIONS ---
Patient: DARREL RAZA General Instructions [facility] VisitID: [id number] [place] [address] 35y, F Registration Date/Time: 10/07/2016 Primary dysmenorrhea INSTRUCTIONS Warnings: GENERAL WARNINGS: Return or contact your physician immediately if your condition worsens or changes unexpectedly, if not improving as expected, or if other problems arise. Specifically return if problem worsens. Prescription Medications: Ultram 50 mg tablets: take 1-2 orally every 6 hours as needed for pain. Dispense twenty (20). No refills. Substitution is permissible. Understanding of the discharge instructions verbalized by patient. Follow-up with: Brad Kaur MD, Obstetrics/Gynecology, , [facility], [address] [place] [address] Follow up in about two days as needed. Call for an appointment. Summary of care provided to patient. ADDITIONAL INFORMATION Painful Menstrual Periods The uterus is a muscle and contracts normally during the menstrual cycle. The contraction pushes out the build-up of tissue that occurs each month inside the uterus. If the contraction is very strong, it can cause pain because the muscle is not getting enough oxygen for the amount of work it is doing. Pain with menstruation is called dysmenorrhea. The pain may feel like a dull ache or throbbing in the lower abdomen. It may spread to your lower back or inner thighs. In severe cases there may also be nausea, vomiting, loose stools, sweating or dizziness. There are two types of dysmenorrhea: Primary Dysmenorrhea (common menstrual cramps) usually appears within one or two years after you start your periods. It usually gets better or goes away as you get older or when you have a baby. The menstrual cramps usually start just before, or on the day of your period, and last 1-3 days. Treatment is with comfort measures and anti-inflammatory drugs as described below (see Home Care). If your pain is not controlled with these measures, your doctor may prescribe control pills. This will reduce the pain of each period. Secondary Dysmenorrhea starts later in life. The pain begins earlier in the menstrual cycle and lasts longer than common menstrual cramps. It is caused by a specific problem with the pelvic organs, such as: PID (pelvic inflammatory disease) -- an infection in the fallopian tubes Fibroids benign tumors within the wall of the uterus (not cancer) Endometriosis the tissue that lines the uterus spreads outside the uterus and grows there. This tissue swells and bleeds each month, just like the tissue in your uterus, and causes pain. IUD use -- especially in the first few months after placement Once the cause of secondary dysmenorrhea is found, it can be treated. Home Care: Most women with common menstrual cramping (primary dysmenorrhea) can remain active throughout their period. Many women find that regular exercise each werek reduces menstrual pain. If cramping is severe, rest in bed with a heating pad on the lower abdomen or lower back. A hot bath or massage to the lower back and abdomen may also give relief. Smoking can make symptoms worse. If you smoke, ask your doctor for help with a stop-smoking plan. Avoid caffeine and alcohol around the time of your period since these can make symptoms worse. Anti-inflammatory medicine such as aspirin, ibuprofen (Advil, Motrin) or naproxen (Aleve, Naprosyn) can be very helpful, especially if taken at the very first signs of bleeding or cramping . Acetaminophen (Tylenol) is not as effective for this problem. [NOTE: If you have chronic liver or kidney disease or ever had a stomach ulcer or GI bleeding, talk with your doctor before using these medicines.] If your pain is not controlled by the above measures, a prescription pain medicine may be required for a short time. Discuss this with your doctor. Follow Up with your doctor as advised. If you have just started menstruating in the past 1-2 years, and your pain is mild to moderate, your symptoms are most likely not a cause for concern. However, if menstrual cramps are severe enough to interfere with your daily activities, last longer than a few days, or if you are older and just started having menstrual pain, it is important to see your doctor for further evaluation. Get Prompt Medical Attention if any of the following occur: Fever over 100.4F (38.0C) with pelvic pain Uncontrolled menstrual pain or pain that lasts longer than usual or occurs between periods Unusual vaginal discharge between periods Heavy vaginal bleeding (soaking more than one pad an hour for three hours) Passage of pink or bocanegra tissue from the vagina If you use tampons, watch for the following signs of Toxic Shock Syndrome and return at once: Fever over 102.0F (38.9C), with or without pelvic pain Vomiting, diarrhea Dizziness, weakness or fainting Rash that looks like a bad sunburn Tramadol Hydrochloride Oral tablet What is this medicine? TRAMADOL (TRA ma dole) is a pain reliever. It is used to treat moderate to severe pain in adults. How should I use this medicine? Take this medicine by mouth with a full glass of water. Follow the directions on the prescription label. If the medicine upsets your stomach, take it with food or milk. Do not take more medicine than you are told to take. Talk to your pipe out worker regarding the use of this medicine in children. Special care may be needed. What side effects may I notice from receiving this medicine? Side effects that you should report to your doctor or health nanny caregiver as soon as possible: allergic reactions like skin rash, itching or hives, swelling of the face, lips, or tongue breathing difficulties, wheezing confusion itching light headedness or fainting spells redness, blistering, peeling or loosening of the skin, including inside the mouth seizures Side effects that usually do not require medical attention (report to your doctor or health nanny caregiver if they continue or are bothersome): constipation dizziness drowsiness headache nausea, vomiting What may interact with this medicine? Do not take this medicine with any of the following medications: MAOIs like Carbex, Eldepryl, Marplan, Nardil, and Parnate This medicine may also interact with the following medications: alcohol or medicines that contain alcohol antihistamines benzodiazepines bupropion carbamazepine or oxcarbazepine clozapine cyclobenzaprine digoxin furazolidone linezolid medicines for depression, anxiety, or psychotic disturbances medicines for migraine headache like almotriptan, eletriptan, frovatriptan, naratriptan, rizatriptan, sumatriptan, zolmitriptan medicines for pain like pentazocine, buprenorphine, butorphanol, meperidine, nalbuphine, and propoxyphene medicines for sleep muscle relaxants naltrexone phenobarbital phenothiazines like perphenazine, thioridazine, chlorpromazine, mesoridazine, fluphenazine, prochlorperazine, promazine, and trifluoperazine procarbazine warfarin What if I miss a dose? If you miss a dose, take it as soon as you can. If it is almost time for your next dose, take only that dose. Do not take double or extra doses. Where should I keep my medicine? Keep out of the reach of children. Store at room temperature between 15 and 30 degrees C (59 and 86 degrees F). Keep container tightly closed. Throw away any unused medicine after the expiration date. What should I tell my health care provider before I take this medicine? They need to know if you have any of these conditions: brain tumor depression drug abuse or addiction head injury if you frequently drink alcohol containing drinks kidney disease or trouble passing urine liver disease lung disease, asthma, or breathing problems seizures or epilepsy suicidal thoughts, plans, or attempt; a previous suicide attempt by you or a family member an unusual or allergic reaction to tramadol, codeine, other medicines, foods, dyes, or preservatives or trying to get breast-feeding What should I watch for while using this medicine? Tell your doctor or health nanny caregiver if your pain does not go away, if it gets worse, or if you have new or a different type of pain. You may develop tolerance to the medicine. Tolerance means that you will need a higher dose of the medicine for pain relief. Tolerance is normal and is expected if you take this medicine for a long time. Do not suddenly stop taking your medicine because you may develop a severe reaction. Your body becomes used to the medicine. This does NOT mean you are addicted. Addiction is a behavior related to getting and using a drug for a non-medical reason. If you have pain, you have a medical reason to take pain medicine. Your doctor will tell you how much medicine to take. If your doctor wants you to stop the medicine, the dose will be slowly lowered over time to avoid any side effects. You may get drowsy or dizzy. Do not drive, use machinery, or do anything that needs mental alertness until you know how this medicine affects you. Do not stand or sit up quickly, especially if you are an older patient. This reduces the risk of dizzy or fainting spells. Alcohol can increase or decrease the effects of this medicine. Avoid alcoholic drinks. You may have constipation. Try to have a bowel movement at least every 2 to 3 days. If you do not have a bowel movement for 3 days, call your doctor or health nanny caregiver. Your mouth may get dry. Chewing sugarless gum or sucking hard candy, and drinking plenty of water may help. Contact your doctor if the problem does not go away or is severe. You have been given the following additional information: Dysmenorrhea Tramadol Hydrochloride Oral tablet (Electronically signed by Donna Yeung A.R.N.P. 10/07/2016 20:07)
--- NOTE | 2016-10-08 08:47 | ED MED RECONCILIATION SUMMARY ---
Patient: DARREL RAZA Medication Reconciliation Report [facility] VisitID: [id number] [address] [place] [address] 35y, F Registration Date/Time: 10/07/2016 Weight: 93.4 kg Height/Length: 62 in. BMI: 37.7 ALLERGIES: Penicillins The patient's Home Medications are listed below: NONE. The source(s) of the original Home Medication information: patient The following Medications were given to the patient in the Emergency Department: Toradol [IVP] IVP 30 mg, administered: 10/07/2016 5:00:00 PM The following Medications were prescribed to the patient: Ultram 50 mg tablets: take 1-2 orally every 6 hours as needed for pain. Dispense twenty (20). No refills. Substitution is permissible. -- Donna Yeung A.R.N.P.
--- NOTE | 2016-10-08 08:47 | ED MAR SUMMARY ---
..... Medication Administration Record [address] [address] Patient: DARREL RAZA Visit ID: [id number] 35y, F Weight: 93.4 kg Height/Length: 62 in BMI: 37.7 ALLERGIES: Penicillins Given 17:00 10/07/2016 Briseida Araujo R.N. Medication Administered: TORADOL [IVP], Dose: 30 mg IVP over 2 minute(s), Site: #1 right AC. Medication Ordered: Toradol IV 30 mg (NOW).
--- NOTE | 2016-10-08 08:47 | ED DISCHARGE INSTRUCTIONS ---
Patient: DARREL RAZA General Instructions [facility] VisitID: [id number] [place] [address] 35y, F Registration Date/Time: 10/07/2016 Primary dysmenorrhea INSTRUCTIONS Warnings: GENERAL WARNINGS: Return or contact your physician immediately if your condition worsens or changes unexpectedly, if not improving as expected, or if other problems arise. Specifically return if problem worsens. Prescription Medications: Ultram 50 mg tablets: take 1-2 orally every 6 hours as needed for pain. Dispense twenty (20). No refills. Substitution is permissible. Understanding of the discharge instructions verbalized by patient. Follow-up with: Brad Kaur MD, Obstetrics/Gynecology, , [facility], [address] [place] [address] Follow up in about two days as needed. Call for an appointment. Summary of care provided to patient. ADDITIONAL INFORMATION Painful Menstrual Periods The uterus is a muscle and contracts normally during the menstrual cycle. The contraction pushes out the build-up of tissue that occurs each month inside the uterus. If the contraction is very strong, it can cause pain because the muscle is not getting enough oxygen for the amount of work it is doing. Pain with menstruation is called dysmenorrhea. The pain may feel like a dull ache or throbbing in the lower abdomen. It may spread to your lower back or inner thighs. In severe cases there may also be nausea, vomiting, loose stools, sweating or dizziness. There are two types of dysmenorrhea: Primary Dysmenorrhea (common menstrual cramps) usually appears within one or two years after you start your periods. It usually gets better or goes away as you get older or when you have a baby. The menstrual cramps usually start just before, or on the day of your period, and last 1-3 days. Treatment is with comfort measures and anti-inflammatory drugs as described below (see Home Care). If your pain is not controlled with these measures, your doctor may prescribe control pills. This will reduce the pain of each period. Secondary Dysmenorrhea starts later in life. The pain begins earlier in the menstrual cycle and lasts longer than common menstrual cramps. It is caused by a specific problem with the pelvic organs, such as: PID (pelvic inflammatory disease) -- an infection in the fallopian tubes Fibroids benign tumors within the wall of the uterus (not cancer) Endometriosis the tissue that lines the uterus spreads outside the uterus and grows there. This tissue swells and bleeds each month, just like the tissue in your uterus, and causes pain. IUD use -- especially in the first few months after placement Once the cause of secondary dysmenorrhea is found, it can be treated. Home Care: Most women with common menstrual cramping (primary dysmenorrhea) can remain active throughout their period. Many women find that regular exercise each werek reduces menstrual pain. If cramping is severe, rest in bed with a heating pad on the lower abdomen or lower back. A hot bath or massage to the lower back and abdomen may also give relief. Smoking can make symptoms worse. If you smoke, ask your doctor for help with a stop-smoking plan. Avoid caffeine and alcohol around the time of your period since these can make symptoms worse. Anti-inflammatory medicine such as aspirin, ibuprofen (Advil, Motrin) or naproxen (Aleve, Naprosyn) can be very helpful, especially if taken at the very first signs of bleeding or cramping . Acetaminophen (Tylenol) is not as effective for this problem. [NOTE: If you have chronic liver or kidney disease or ever had a stomach ulcer or GI bleeding, talk with your doctor before using these medicines.] If your pain is not controlled by the above measures, a prescription pain medicine may be required for a short time. Discuss this with your doctor. Follow Up with your doctor as advised. If you have just started menstruating in the past 1-2 years, and your pain is mild to moderate, your symptoms are most likely not a cause for concern. However, if menstrual cramps are severe enough to interfere with your daily activities, last longer than a few days, or if you are older and just started having menstrual pain, it is important to see your doctor for further evaluation. Get Prompt Medical Attention if any of the following occur: Fever over 100.4F (38.0C) with pelvic pain Uncontrolled menstrual pain or pain that lasts longer than usual or occurs between periods Unusual vaginal discharge between periods Heavy vaginal bleeding (soaking more than one pad an hour for three hours) Passage of pink or bocanegra tissue from the vagina If you use tampons, watch for the following signs of Toxic Shock Syndrome and return at once: Fever over 102.0F (38.9C), with or without pelvic pain Vomiting, diarrhea Dizziness, weakness or fainting Rash that looks like a bad sunburn Tramadol Hydrochloride Oral tablet What is this medicine? TRAMADOL (TRA ma dole) is a pain reliever. It is used to treat moderate to severe pain in adults. How should I use this medicine? Take this medicine by mouth with a full glass of water. Follow the directions on the prescription label. If the medicine upsets your stomach, take it with food or milk. Do not take more medicine than you are told to take. Talk to your sheriffs regarding the use of this medicine in children. Special care may be needed. What side effects may I notice from receiving this medicine? Side effects that you should report to your doctor or health landcare officer as soon as possible: allergic reactions like skin rash, itching or hives, swelling of the face, lips, or tongue breathing difficulties, wheezing confusion itching light headedness or fainting spells redness, blistering, peeling or loosening of the skin, including inside the mouth seizures Side effects that usually do not require medical attention (report to your doctor or health landcare officer if they continue or are bothersome): constipation dizziness drowsiness headache nausea, vomiting What may interact with this medicine? Do not take this medicine with any of the following medications: MAOIs like Carbex, Eldepryl, Marplan, Nardil, and Parnate This medicine may also interact with the following medications: alcohol or medicines that contain alcohol antihistamines benzodiazepines bupropion carbamazepine or oxcarbazepine clozapine cyclobenzaprine digoxin furazolidone linezolid medicines for depression, anxiety, or psychotic disturbances medicines for migraine headache like almotriptan, eletriptan, frovatriptan, naratriptan, rizatriptan, sumatriptan, zolmitriptan medicines for pain like pentazocine, buprenorphine, butorphanol, meperidine, nalbuphine, and propoxyphene medicines for sleep muscle relaxants naltrexone phenobarbital phenothiazines like perphenazine, thioridazine, chlorpromazine, mesoridazine, fluphenazine, prochlorperazine, promazine, and trifluoperazine procarbazine warfarin What if I miss a dose? If you miss a dose, take it as soon as you can. If it is almost time for your next dose, take only that dose. Do not take double or extra doses. Where should I keep my medicine? Keep out of the reach of children. Store at room temperature between 15 and 30 degrees C (59 and 86 degrees F). Keep container tightly closed. Throw away any unused medicine after the expiration date. What should I tell my health care provider before I take this medicine? They need to know if you have any of these conditions: brain tumor depression drug abuse or addiction head injury if you frequently drink alcohol containing drinks kidney disease or trouble passing urine liver disease lung disease, asthma, or breathing problems seizures or epilepsy suicidal thoughts, plans, or attempt; a previous suicide attempt by you or a family member an unusual or allergic reaction to tramadol, codeine, other medicines, foods, dyes, or preservatives or trying to get breast-feeding What should I watch for while using this medicine? Tell your doctor or health landcare officer if your pain does not go away, if it gets worse, or if you have new or a different type of pain. You may develop tolerance to the medicine. Tolerance means that you will need a higher dose of the medicine for pain relief. Tolerance is normal and is expected if you take this medicine for a long time. Do not suddenly stop taking your medicine because you may develop a severe reaction. Your body becomes used to the medicine. This does NOT mean you are addicted. Addiction is a behavior related to getting and using a drug for a non-medical reason. If you have pain, you have a medical reason to take pain medicine. Your doctor will tell you how much medicine to take. If your doctor wants you to stop the medicine, the dose will be slowly lowered over time to avoid any side effects. You may get drowsy or dizzy. Do not drive, use machinery, or do anything that needs mental alertness until you know how this medicine affects you. Do not stand or sit up quickly, especially if you are an older patient. This reduces the risk of dizzy or fainting spells. Alcohol can increase or decrease the effects of this medicine. Avoid alcoholic drinks. You may have constipation. Try to have a bowel movement at least every 2 to 3 days. If you do not have a bowel movement for 3 days, call your doctor or health landcare officer. Your mouth may get dry. Chewing sugarless gum or sucking hard candy, and drinking plenty of water may help. Contact your doctor if the problem does not go away or is severe. You have been given the following additional information: Dysmenorrhea Tramadol Hydrochloride Oral tablet (Electronically signed by Donna Yeung A.R.N.P. 10/07/2016 20:07)
--- NOTE | 2016-10-08 08:47 | ED MAR SUMMARY ---
..... Medication Administration Record [facility] [address] [place] [address] Patient: DARREL RAZA Visit ID: [id number] 35y, F Weight: 93.4 kg Height/Length: 62 in BMI: 37.7 ALLERGIES: Penicillins Given 17:00 10/07/2016 Briseida Araujo R.N. Medication Administered: TORADOL [IVP], Dose: 30 mg IVP over 2 minute(s), Site: #1 right AC. Medication Ordered: Toradol IV 30 mg (NOW).
== END 2016-10-07 18:57 | disposition home or self-care (01) ==
LOC: ED SRH 14:43
DX: N94.4 Primary dysmenorrhea (principal); F17.210 Nicotine dependence, cigarettes, uncomplicated; Z88.0 Allergy status to penicillin
CPT/HCPCS: 90047; 94060; 95059; 98428